=== PATIENT | female | born 1995 | race Caucasian/White ===

== ENCOUNTER 2017-02-03 04:14 | Emergency (ER) | payer OTHER ==
[~2017-02-03] VITALS: Ht 149.9 cm; Wt 42.5 kg
[2017-02-03 04:56] LABS: HCG UR OBC PASS
[2017-02-03] MEDS ORDERED: PHENAZOPYRIDINE 200 MG TABLET ONE (05:09)
[2017-02-03] MEDS ORDERED: ONDANSETRON ODT 4 MG ONE (05:09)
[2017-02-03] MEDS ORDERED: HYDROcodone/APAP 5/325 TABLET ONE (05:09)
[2017-02-03] MEDS ORDERED: PHENAZOPYRIDINE 200 MG TABLET PO ONE (05:30)
[2017-02-03] MEDS ORDERED: ONDANSETRON ODT 4 MG PO ONE (05:30)
[2017-02-03] MEDS ORDERED: HYDROcodone/APAP 5/325 TABLET PO ONE (05:30)
[2017-02-03 05:56] VITALS: BP 111/61
== END 2017-02-03 05:58 | disposition home or self-care (01) ==
LOC: ED 05:50
DX: N30.01 Acute cystitis with hematuria (principal)
CPT/HCPCS: 81001; 81025; 87077; 87086; 99284; Q0162